=== PATIENT | female | born 1970 | race Caucasian/White ===

== ENCOUNTER 2022-02-24 06:37 | Day surgery (SDC) | payer OTHER ==
[~2022-02-24] VITALS: Ht 152.4 cm; Wt 56.2 kg
[2022-02-24] MEDS ORDERED: diphenhydrAMINE 50 MG/ML VIAL ONE (07:41)
[2022-02-24] MEDS ORDERED: MIDAZOLAM 5 MG/5 ML VIAL ONE (07:41)
[2022-02-24] MEDS ORDERED: LIDOCAINE 2% 100 MG/5 ML UJET TP ONE ×2 (07:41)
[2022-02-24] MEDS ORDERED: fentaNYL citrate 0.05 MG/ML VIAL ONE (07:41)
[2022-02-24] MEDS ORDERED: MIDAZOLAM 2 MG/2 ML VIAL IVP ONE (09:00)
[2022-02-24] MEDS ORDERED: fentaNYL citrate 0.05 MG/ML VIAL IVP ONE (09:00)
== END 2022-02-24 09:20 | disposition home or self-care (01) ==
LOC: MMU 06:37 → MDS 06:37
PROVIDERS: ATTEND Internal Medicine Gastroenterology
DX: Z12.11 Encounter for screening for malignant neoplasm of colon (principal); K29.50 Unspecified chronic gastritis without bleeding; Z79.899 Other long term (current) drug therapy; Z20.822 Contact with and (suspected) exposure to COVID-19
CPT/HCPCS: 43239; 45378; 81025; 87426; 88305; 88312; 88313; 88342; J2250; J3010; J1200